=== PATIENT | female | born 1990 | race Caucasian/White ===

== ENCOUNTER 2016-09-09 20:38 | Emergency (ER) | payer OTHER ==
[~2016-09-09] VITALS: Ht 165.1 cm; Wt 68.0 kg
[2016-09-09 20:45] VITALS: BP 133/66; PULSE 133; RESP 22; TEMP 102.9; O2SAT 99
[2016-09-09] MEDS ORDERED: SODIUM CHLOR 0.9% 1000 ML INJ 1,000 ML IV SCH ×3 (21:01→23:10)
--- NOTE | 2016-09-09 21:03 | PD ---
HPI Chief Complaint: right breast pain Time Seen by Provider: 21:03 Travel History International Travel<30 days: No Contact w/Intl Traveler<30days: No History of Present Illness HPI 26-year-old female presents to the emergency department for evaluation of right breast pain, fever, and body aches. Patient states she has had fever for 4 days. Patient states that 3 days ago she began to have pain in her right breast. States that she is breast-feeding her 2-week-old infant. States that 2 days ago she noticed some erythema and warmth to the breast with tenderness to palpation. States that she was seen by her director skills yesterday and prescribed dicloxacillin for mastitis. She was unable to get the prescription filled until today and has taken 2 doses so far. States that she has had fever for 3 days with body aches and nausea. States yesterday she had 2 episodes of nonbloody nonbilious emesis. She is has also had a dull throbbing headache. Her maximum temperature has been 102.5F. She has been taking ibuprofen with minimal improvement of symptoms. States that today she became concerned when she felt a hard lump in her breast and she has had decreased milk production in this breast. Denies chest pain, shortness of breath, abdominal pain, diarrhea, constipation, cough or cold symptoms. PFSH Social History Alcohol Use: Yes Tobacco Use: No Substance Use: No Allergies-Medications (Allergen,Severity, Reaction): Coded Allergies: No Known Allergies (Unverified , 09/09/16) Reported Meds & Prescriptions Reported Meds & Active Scripts Active Reported Dicloxacillin (Dicloxacillin Sodium) 250 Mg Cap 250 Mg PO Q6HR Dha (Docosahexaenoic Acid) 200 Mg Cap 1 Tab PO DAILY Review of Systems Except as stated in HPI: all other systems reviewed are Neg Physical Exam Narrative GENERAL: Well-nourished and well-developed pleasant female patient in no acute distress. SKIN: Warm and dry. HEAD: Normocephalic and atraumatic. EYES: No injection, drainage, or hyphema noted. PERRLA. EOMI. ENT: No nasal drainage noted. Oropharynx is clear. NECK: Supple and the trachea is midline. CARDIOVASCULAR: Regular rate and rhythm. RESPIRATORY: Breath sounds are equal bilaterally with no accessory muscle use, wheezing, rhonchi, or crackles. BREASTS: Right breast is swollen and warm with erythema to the superior aspect around the noon to 3 oclock position. There is a firm tender lump to the 1 oclock position just outside the areola. No nipple discharge. Left breast is within normal limits. GASTROINTESTINAL: Abdomen is soft, non-tender, and nondistended. MUSCULOSKELETAL: No obvious deformities, swelling, cyanosis, or ecchymosis is present throughout the upper and lower extremities. Patient has full range of motion without any signs of neurovascular compromise. NEUROLOGICAL: Awake, alert, and oriented. Normal speech and gait. Cranial nerves are grossly intact. Data Data Last Documented VS Vital Signs Date Time Temp Pulse Resp B/P Pulse Ox O2 Delivery O2 Flow Rate FiO2 09/09/16 23:00 100.2 113 25 115/61 98 Room Air Orders Complete Blood Count With Diff (09/09/16 21:01) Comprehensive Metabolic Panel (09/09/16 21:01) Lactic Acid Sepsis Protocol (09/09/16 21:01) Blood Culture (09/09/16 21:01) Ecg Monitoring (09/09/16 21:01) Iv Access Insert/Monitor (09/09/16 21:01) Oximetry (09/09/16 21:01) Ondansetron Inj (Zofran Inj) (09/09/16 21:15) Sodium Chlor 0.9% 1000 Ml Inj (Ns 1000 M (09/09/16 21:01) Ketorolac Inj (Toradol Inj) (09/09/16 21:15) Sodium Chlor 0.9% 1000 Ml Inj (Ns 1000 M (09/09/16 21:01) Us Breast Unilateral (09/09/16 ) Potassium Cl 40 Meq/30 Ml Liq (Kcl 40 Me (09/09/16 22:30) Clindamycin Inj (Cleocin Inj) (09/09/16 22:30) Labs Laboratory Tests Test 09/09/16 21:30 White Blood Count 7.6 TH/MM3 Red Blood Count 3.77 MIL/MM3 Hemoglobin 11.5 GM/DL Hematocrit 34.0 % Mean Corpuscular Volume 90.1 FL Mean Corpuscular Hemoglobin 30.6 PG Mean Corpuscular Hemoglobin 33.9 % Concent Red Cell Distribution Width 12.5 % Platelet Count 202 TH/MM3 Mean Platelet Volume 7.8 FL Neutrophils (%) (Auto) 76.2 % Lymphocytes (%) (Auto) 12.5 % Monocytes (%) (Auto) 3.2 % Eosinophils (%) (Auto) 7.8 % Basophils (%) (Auto) 0.3 % Neutrophils # (Auto) 5.8 TH/MM3 Lymphocytes # (Auto) 0.9 TH/MM3 Monocytes # (Auto) 0.2 TH/MM3 Eosinophils # (Auto) 0.6 TH/MM3 Basophils # (Auto) 0.0 TH/MM3 CBC Comment DIFF FINAL Differential Comment Sodium Level 140 MEQ/L Potassium Level 3.2 MEQ/L Chloride Level 108 MEQ/L Carbon Dioxide Level 24.4 MEQ/L Anion Gap 8 MEQ/L Blood Urea Nitrogen 6 MG/DL Creatinine 0.68 MG/DL Estimat Glomerular Filtration 103 ML/MIN Rate Random Glucose 107 MG/DL Lactic Acid Level 1.1 mmol/L Calcium Level 8.6 MG/DL Total Bilirubin 0.8 MG/DL Aspartate Amino Transf 14 U/L (AST/SGOT) Alanine Aminotransferase 19 U/L (ALT/SGPT) Alkaline Phosphatase 122 U/L Total Protein 7.0 GM/DL Albumin 3.3 GM/DL [facility] Medical Decision Making Medical Screen Exam Complete: Yes Emergency Medical Condition: Yes Differential Diagnosis Mastitis versus abscess versus sepsis versus cellulitis Narrative Course 26-year-old female presents to the emergency department for evaluation of right breast pain, redness, fever and body aches for 3 days. The patient is breast- feeding. Patient has a fever of 102.9F orally. She is tachycardic with a heart rate of 133 beats per minute. Otherwise vital signs are within normal limits. IV access is obtained, labs drawn and sent. Patient is administered IV fluids, Zofran and Toradol. CBC shows mild anemia with hemoglobin 11.5, hematocrit 34.0. CMP shows mild hypokalemia with a potassium of 3.2, otherwise unremarkable. Lactic acid is 1.1. Blood cultures are pending. Patient's potassium is repleted orally with 40 mEq. She has been given 3 L of fluid in total and clindamycin 600 mg IV. Her labs are all reassuring. If ultrasound is negative for abscess and my plan would be to discharge the patient home on oral clindamycin. Patient will be signed out to my attending physician Dr. Pleitez pending the results of right breast ultrasound. Ewelina Smith Sep 09, 2016 21:03
[2016-09-09] MEDS ORDERED: ONDANSETRON HCL 4 MG/2 ML VIAL IVP ONE (21:15)
[2016-09-09] MEDS ORDERED: KETOROLAC TROMETHAMINE 30 MG/ML (IVP) VIAL IVP ONE (21:15)
[2016-09-09] MEDS ORDERED: DICL250 PO (21:22)
[2016-09-09] MEDS ORDERED: DOCO200C PO (21:22)
[2016-09-09 21:28] VITALS: BP 117/66; PULSE 129; RESP 16; O2SAT 99
--- NOTE | 2016-09-09 21:42 | PD ---
Physical Exam Date Seen by Provider: Sep 09, 2016 Time Seen by Provider: 21:39 Narrative GENERAL: Well developed well-nourished female in no acute distress no respiratory distress with tachycardia and fever; GCS 15 SKIN: Warm and dry. Right breast with erythema increased warmth and edema in the right lateral lower quadrant HEAD: Normocephalic. EYES: No scleral icterus. No injection or drainage. NECK: Supple, trachea midline. No JVD or lymphadenopathy. CARDIOVASCULAR: Regular rate and rhythm without murmurs, gallops, or rubs. RESPIRATORY: Breath sounds equal bilaterally. No accessory muscle use. GASTROINTESTINAL: Abdomen soft, non-tender, nondistended. MUSCULOSKELETAL: No cyanosis, or edema. BACK: Nontender without obvious deformity. No CVA tenderness. Data Data Last Documented VS Vital Signs Date Time Temp Pulse Resp B/P Pulse Ox O2 Delivery O2 Flow Rate FiO2 09/10/16 01:24 98.5 98 16 102/66 98 Room Air Orders Complete Blood Count With Diff (09/09/16 21:01) Comprehensive Metabolic Panel (09/09/16 21:01) Lactic Acid Sepsis Protocol (09/09/16 21:01) Blood Culture (09/09/16 21:01) Ecg Monitoring (09/09/16 21:01) Iv Access Insert/Monitor (09/09/16 21:01) Oximetry (09/09/16 21:01) Ondansetron Inj (Zofran Inj) (09/09/16 21:15) Sodium Chlor 0.9% 1000 Ml Inj (Ns 1000 M (09/09/16 21:01) Ketorolac Inj (Toradol Inj) (09/09/16 21:15) Sodium Chlor 0.9% 1000 Ml Inj (Ns 1000 M (09/09/16 21:01) Us Breast Unilateral (09/09/16 ) Potassium Cl 40 Meq/30 Ml Liq (Kcl 40 Me (09/09/16 22:30) Clindamycin Inj (Cleocin Inj) (09/09/16 22:30) Sodium Chlor 0.9% 1000 Ml Inj (Ns 1000 M (09/09/16 23:10) Labs Laboratory Tests Test 09/09/16 21:30 White Blood Count 7.6 TH/MM3 Red Blood Count 3.77 MIL/MM3 Hemoglobin 11.5 GM/DL Hematocrit 34.0 % Mean Corpuscular Volume 90.1 FL Mean Corpuscular Hemoglobin 30.6 PG Mean Corpuscular Hemoglobin 33.9 % Concent Red Cell Distribution Width 12.5 % Platelet Count 202 TH/MM3 Mean Platelet Volume 7.8 FL Neutrophils (%) (Auto) 76.2 % Lymphocytes (%) (Auto) 12.5 % Monocytes (%) (Auto) 3.2 % Eosinophils (%) (Auto) 7.8 % Basophils (%) (Auto) 0.3 % Neutrophils # (Auto) 5.8 TH/MM3 Lymphocytes # (Auto) 0.9 TH/MM3 Monocytes # (Auto) 0.2 TH/MM3 Eosinophils # (Auto) 0.6 TH/MM3 Basophils # (Auto) 0.0 TH/MM3 CBC Comment DIFF FINAL Differential Comment Sodium Level 140 MEQ/L Potassium Level 3.2 MEQ/L Chloride Level 108 MEQ/L Carbon Dioxide Level 24.4 MEQ/L Anion Gap 8 MEQ/L Blood Urea Nitrogen 6 MG/DL Creatinine 0.68 MG/DL Estimat Glomerular Filtration 103 ML/MIN Rate Random Glucose 107 MG/DL Lactic Acid Level 1.1 mmol/L Calcium Level 8.6 MG/DL Total Bilirubin 0.8 MG/DL Aspartate Amino Transf 14 U/L (AST/SGOT) Alanine Aminotransferase 19 U/L (ALT/SGPT) Alkaline Phosphatase 122 U/L Total Protein 7.0 GM/DL Albumin 3.3 GM/DL [facility] Medical Record Reviewed: Yes Supervised Visit with GERRY: Yes Interpretation(s) Last Impressions Breast Ultrasound 09/09/16 0000 Signed Impressions: Service Date/Time: Friday, September 09, 2016 23:11 - CONCLUSION: 1. Edema in the right breast associated with the area of erythema and tenderness most characteristic of a mastitis without focal abscess identified. Sy Gandhi MD CBC & BMP Diagram 09/09/16 21:30 Vital Signs Date Time Temp Pulse Resp B/P Pulse Ox O2 Delivery O2 Flow Rate FiO2 09/10/16 00:07 101 22 09/09/16 23:00 100.2 113 25 115/61 98 Room Air 09/09/16 21:28 129 16 117/66 99 Room Air 09/09/16 20:45 102.9 133 22 133/66 99 Differential Diagnosis Mastitis, abscess, sepsis Narrative Course Patient seen and evaluated and concur with current impression, diagnostics and interventions initiated by Ewelina Smith PA-C; patient will anticipate that the patient will require admission for ongoing IV antibiotics @ 1:20 AM patient has been sleeping readily awakened and reports that she feels well patient is aware that imaging study shows no evidence for an abscess but changes are consistent with acute mastitis. Patient is adamant that she does not want to stay as her is admitted to the hospital. Patient is aware of risk benefit of not staying versus staying but vital signs have improved significantly and essentially normalized white count is normal lactic acid is not elevated. Patient is very informed and agreeable to return if any recurrent symptoms or any change or worsening of condition. Patient has prescription for oral antibiotic that was started yesterday as well as additional receipt of IV antibiotic in the emergency department. 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
[2016-09-09 21:53] LABS: AUTOMATED NEUTROPHIL # 5.8 TH/MM3 (1.8-7.7); BASOPHIL % 0.3 % (0.0-2.0); EOSINOPHIL # 0.6 TH/MM3 (0-0.4); EOSINOPHIL % 7.8 % (0.0-4.0); HEMO FLAGS DIFF FINAL; LYMPH % 12.5 % (9.0-44.0); LYMPHOCYTE # 0.9 TH/MM3 (1.0-4.8); MEAN CELL VOLUME 90.1 FL (80.0-100.0); MEAN CORPUSCULAR HEMOGLOBIN 30.6 PG (27.0-34.0); MEAN CORPUSCULAR HGB CONC 33.9 % (32.0-36.0); MONO % 3.2 % (0.0-8.0); NEUT % 76.2 % (16.0-70.0); PLATELET COUNT 202 TH/MM3 (150-450); RED BLOOD COUNT 3.77 MIL/MM3 (4.00-5.30); RED CELL DISTRIBUTION WIDTH 12.5 % (11.6-17.2); WHITE BLOOD COUNT 7.6 TH/MM3 (4.0-11.0)
[2016-09-09 22:16] LABS: ANION GAP 8 MEQ/L (5-15); AST (GOT) 14 U/L (15-37); BICARBONATE 24.4 MEQ/L (21.0-32.0); BLOOD UREA NITROGEN 6 MG/DL (7-18); CHLORIDE 108 MEQ/L (98-107); GLOMERULAR FILTRATION RATE 103 ML/MIN (>89); POTASSIUM 3.2 MEQ/L (3.5-5.1); SODIUM (NA) 140 MEQ/L (136-145)
[2016-09-09 22:19] LABS: ALKALINE PHOSPHATASE 122 U/L (45-117); ALT (GPT) 19 U/L (10-53); TOTAL BILIRUBIN ADULT 0.8 MG/DL (0.2-1.0)
[2016-09-09] MEDS ORDERED: POTASSIUM CL 40 MEQ/30 ML LIQ UDC PO ONE (22:30)
[2016-09-09] MEDS ORDERED: CLINDAMYCIN INJ 600 MG in SODIUM CHLORIDE 0.9% INJ 100 ML IV ONE (22:30)
[2016-09-09 23:00] VITALS: BP 115/61; PULSE 113; RESP 25; TEMP 100.2; O2SAT 98
[2016-09-09] MEDS ORDERED: CLIN1CAP6 PO (23:22)
[2016-09-10 00:07] VITALS: PULSE 101; RESP 22
--- NOTE | 2016-09-10 01:05 | RADRPT ---
EXAM DATE/TIME: 09/09/2016 23:11 [place] COMPARISON: No previous studies available for comparison. INDICATIONS : Abscess. MEDICAL HISTORY : History of . Right breast tenderness. Mastitis. SURGICAL HISTORY : None. ENCOUNTER: Initial ACUITY: 4-6 days PAIN SCORE: 7/10 LOCATION: Right breast. FINDINGS: Edematous tissues seen in the right breast in the area of erythema and tenderness. No loculated fluid to suggest abscess. Findings would be characteristic of a right-sided mastitis. CONCLUSION: 1. Edema in the right breast associated with the area of erythema and tenderness most characteristic of a mastitis without focal abscess identified. Sy Gandhi MD on September 10, 2016 at 1:02 Board Certified Radiologist. This report was verified electronically.
[2016-09-10 01:24] VITALS: BP 102/66; PULSE 108; PULSE 98; RESP 16; TEMP 98.5; O2SAT 98
== END 2016-09-10 01:45 | disposition home or self-care (01) ==
LOC: NEPC 20:38
DX: O91.22 Nonpurulent mastitis associated with the puerperium (principal)
CPT/HCPCS: 76642; 80053; 83605; 85025; 87040; 96361; 96365; 96375; 99284; J1885; J2405; J7030